=== PATIENT | female | born 1985 | race Caucasian/White ===

== ENCOUNTER 2024-01-04 08:20 | Outpatient (CLI) | payer BC, SELFPAY | END 2024-01-04 08:21 | disposition home or self-care (01) | LOC: NFLDREF 01-09 11:52 | PROVIDERS: Visit Provider Obstetrics & Gynecology | DX: Z83.3 Family history of diabetes mellitus (principal); Z13.1 Encounter for screening for diabetes mellitus; Z13.220 Encounter for screening for lipoid disorders | CPT/HCPCS: 80061; 82947 ==